=== PATIENT | female | born 1970 | race Caucasian/White ===

== ENCOUNTER → 2018-01-31 | Day surgery (SDC) | payer OTHER ==
[~2018-01-31] MED LIST: LIDOCAINE 1% 300 MG/30 ML SDV SC ONE
--- NOTE | 2018-01-31 15:40 | PDCTREPORT ---
Cardiothoracic Procedure Rpt Cardiothoracic Procedure Report: Procedure: Implantation of a loop recorder. Indications: CVA After obtaining informed consent the left subclavian area was sterilely prepped and draped. Small area was anesthetized with 2% xylocaine. Stab wound was made with a 10 blade in the anterior chest. Using the insertion tool and blunt dissection a loop recorder pocket was created. The loop recorder was injected under the skin. [place] were used to close the incision. Pressure dressing was applied. The patient is discharged home. Conclusion successful implantation of a loop recorder.
== END | disposition home or self-care (01) ==
LOC: FCATH 10:27
PROVIDERS: ATTEND Internal Medicine Interventional Cardiology
PROC: 0JH602Z Insertion of Monitoring Device into Chest Subcutaneous Tissue and Fascia, Open Approach (ICD-10-PCS; principal; 2018-01-31)
DX: I69.398 Other sequelae of cerebral infarction (principal); R53.1 Weakness; R00.2 Palpitations; R73.09 Other abnormal glucose
CPT/HCPCS: C1764

== ENCOUNTER → 2018-02-06 | Outpatient (CLI) | payer OTHER ==
[~2018-02-06] MED LIST changes: +IOPAMIDOL (ISOVUE 370) 100 ML BTL IV ONE; -LIDOCAINE 1% 300 MG/30 ML SDV SC ONE
== END ==
LOC: FIMAGING 10:07
PROVIDERS: ATTEND Psychiatry & Neurology Neurology
DX: Z86.73 Personal history of transient ischemic attack (TIA), and cerebral infarction without residual deficits (principal); J32.9 Chronic sinusitis, unspecified
CPT/HCPCS: Q9967

== ENCOUNTER → 2018-03-13 | Outpatient (CLI) | payer OTHER | LOC: FIMAGING 13:46 | PROVIDERS: ATTEND Obstetrics & Gynecology | DX: Z12.31 Encounter for screening mammogram for malignant neoplasm of breast (principal) ==

== ENCOUNTER 2018-05-10 19:43 | Emergency (ER) | payer OTHER ==
[2018-05-10 19:49] VITALS: BP 103/82
--- NOTE | 2018-05-10 19:56 | EDPHY ---
H & P Stated Complaint: L elbow swelling, Time Seen by Provider: 05/10/18 19:56 - Personal History LMP (Females 10-55): 1-7 Days Ago Current Tetanus Diphtheria and Acellular Pertussis (TDAP): Unsure - Medical/Surgical History Hx Asthma: No Hx Chronic Respiratory Disease: No Hx Diabetes: No Hx Cardiac Disease: No Hx Renal Disease: No Hx Cirrhosis: No Hx Alcoholism: No Hx HIV/AIDS: No Hx Splenectomy or Spleen Trauma: No Other PMH: Stroke Dec 2017 - Social History Smoking Status: Never smoked Constitutional: Initial Vital Signs Temperature (C) 36.9 C 05/10/18 19:47 Heart Rate 61 05/10/18 19:47 Respiratory Rate 17 05/10/18 19:47 Blood Pressure 103/82 H 05/10/18 19:47 O2 Sat (%) 97 05/10/18 19:47 O2 Delivery Mode Room Air Allergies/Adverse Reactions: No Known Allergies Allergy (Unverified 05/10/18 19:46) Home Medications: Medication Instructions Recorded Aspirin 05/10/18 Ibuprofen [Motrin] 800 mg PO Q8 #20 tab 05/10/18 Lipitor 05/10/18 Medical Decision Making ED Course/Re-evaluation: CHIEF COMPLAINT: Left elbow swelling HISTORY OF PRESENT ILLNESS: The patient is a 47 y/o female with a history of elbow tendinitis complaining of a sudden onset left elbow swelling, onset 3 hours ago. She was climbing around 3 hours ago without any signs of symptoms. However, since the swelling started, it has increased dramatically. She denies recent injury or overuse of her elbow. No fever, headache, body aches, lightheadedness, chest pain, heart palpitations, shortness of breath, cough, abdominal pain, urinary or bowel complaints, numbness, paresthesias. REVIEW OF SYSTEMS: A comprehensive 10 system review of systems is otherwise negative aside from elements mentioned in the history of present illness and medical decision making. PHYSICAL EXAM: HR, BP, O2 Sat, RR. Temp noted General Appearance: Alert, well hydrated, appropriate, and non-toxic appearing. Head: Atraumatic without scalp tenderness or obvious injury Eyes: Pupils equal, round, reactive to light and accommodation, EOMI, no trauma , no injection. Ears: Clear bilaterally, no perforation, normal landmarks Nose: Atraumatic, no rhinorrhea, clear. Throat: There is no erythema or exudates, no lesions, normal tonsils, mucus membranes moist. Neck: Supple, 2+ carotid upstroke, nontender, no lymphadenopathy. Respiratory: No retractions, no distress, no wheezes, and no accessory muscle use. Lungs are clear to auscultation bilaterally. Cardiovascular: Regular rate and rhythm, no murmurs, rubs, or gallops. Bilateral carotid, radial, dorsalis pedis, and posterior tibial pulses intact. Good capillary refill all extremities. Gastrointestinal: Abdomen is soft, nontender, non-distended, no masses, no rebound, no guarding, no peritoneal signs. Musculoskeletal: Olecranon bursitis without signs of infection. Pain with extension. Normal active ROM of all extremities, atraumatic. Neurological: Alert, appropriate, and interactive. The patient has normal DTRs and non-focal cranial nerves, motor, sensory, and cerebellar exam. Skin: No rashes, good turgor, no nodules on palpation. Past medical history: Stroke (December 2017), tendinitis Past surgical history: Denies Family history: Denies Social history: Lives in [place], , employed DIAGNOSTICS/PROCEDURES/CRITICAL CARE TIME: Not indicated. DIFFERENTIAL DIAGNOSIS: The differential diagnosis for the patient's elbow swelling included but was not limited to bursitis, fracture, ligamentous injury, contusion, muscular strain. MEDICAL DECISION MAKING: The patient is a 47 y/o female with a history of elbow tendinitis complaining of a sudden onset left elbow swelling, onset 3 hours ago. She denies recent trauma or over use. She was climbing prior to her onset of symptoms. On exam she has a left olecranon bursitis without signs of infection. She is able to move her elbow without difficulty, but does have mild pain with extension. Laboratory and imaging studies are not indicated. Patient will be placed in a sling. I have prescribed her Motrin and advised her to follow up with an orthopedic surgeon. Return precautions provided; patient is comfortable with this plan. d Departure - Departure Disposition: Home, Routine, Self-Care Clinical Impression: Olecranon bursitis Qualifiers: Laterality: left Qualified Code(s): M70.22 - Olecranon bursitis, left elbow Condition: Good Instructions: Elbow Bursitis (ED) Additional Instructions: 1. Take Motrin as prescribed for anti-inflammation. 2. Follow up with an orthopedic surgeon within one week. 3. Return to the emergency department for worsening pain, swelling, numbness, weakness or other concerns. 5. Wear the sling at all times until reevaluation, but okay to shower and sleep without splint. Referrals: Kimberley Suárez MD [Primary Care Provider] - As per Instructions Jason Mayes MD [Medical Doctor] - As per Instructions Prescriptions: Ibuprofen [Motrin] 800 mg PO Q8 #20 tab
[2018-05-10] MEDS ORDERED: IBUPROFEN 800 MG TAB PO ONE (20:01)
== END 2018-05-10 20:17 | disposition home or self-care (01) ==
DX: M70.22 Olecranon bursitis, left elbow (principal)

== ENCOUNTER 2018-05-11 17:40 | Emergency (ER) | payer OTHER ==
--- NOTE | 2018-05-11 18:08 | EDPHY ---
H & P Time Seen by Provider: 05/11/18 17:49 HPI/ROS: HPI Left elbow bruising. 47-year-old female by private vehicle with significant other. This patient was seen yesterday for left elbow swelling. She noticed this about 15 min after doing about 3 hr of climbing. She denies any history of trauma to the left elbow. She had no evidence of infection on evaluation yesterday. She was diagnosed with an elective or non bursitis. She was instructed on follow-up with Orthopedics. She presents back to the emergency department today stating that she now has a bruising, black and blue over the area of her left elbow swelling. She denies any increase in swelling. She has not had a fever. She denies any significant pain. There is no history of new trauma to the elbow joint. ROS: Constitutional: No fever, no chills. No weakness. Musculoskeletal: As above. Skin: No rashes. As above. Neurological: No focal weakness or altered sensation. Past medical history: Stroke December 2017. Unknown etiology. She currently takes a daily aspirin. Social history: Nonsmoker. Very physically active. No alcohol. Here with significant other. Physical Exam: General Appearance: Alert, no distress. This patient is responding to questions appropriately and in full sentences. This patient appears well- hydrated and well-nourished. Eyes: Pupils equal and round no pallor or injection. No lid edema, erythema or injection. Left elbow examination: She has a diffuse and faint ecchymosis primarily over the olecranon. There is some swelling involving the olecranon bursa and surrounding tissues. There is no significant tenderness on palpation of this area. She does not have any significant pain with axial loading of the left elbow, supination and pronation of her left hand or flexion and extension of the left elbow. The left upper extremity is neurovascularly intact. There is no associated warmth erythema on palpation and inspection of this area. Neurological: Motor sensory function is grossly intact. Cranial nerves are normal. Gait is normal. Skin: Warm and dry, no rashes. As above. Extremities are symmetrical except noted. All joints range without pain or impingement. Psychiatric: No agitation. No depression. Database: EKG: Imaging: Left elbow x-ray series: Negative for fracture, subluxation, dislocation. No effusion. Interpreted by me. Procedures: Emergency department course: Triage vital signs reviewed and are normal. She is afebrile. Patient's presentation is likely secondary to contusion associated with olecranon bursitis. Infectious etiology, gout unlikely. Left elbow x-ray series to be obtained. 7:00 p.m., the patient was re-evaluated, resting comfortably at this time. No significant changes regarding her left elbow. I feel that septic bursitis is unlikely. I discussed the results of her x-ray with her and her significant other. They do feel comfortable going home and I feel she is safe for discharge. I discussed orthopedic follow-up and continuing NSAID and management as outlined by Dr. Do. They endorse. Return to emergency department precautions were thoroughly reviewed. All of her questions were answered. The patient was discharged in good condition with her significant other. Differential Diagnosis: The differential diagnosis on this patient includes but is not limited to olecranon bursitis, left elbow contusion. Fracture, subluxation, dislocation of the left elbow, gouty arthritis, septic arthritis, septic bursitis unlikely. This represents a partial list of diagnoses considered. These considerations are based on history, physical exam, past history, reassessment and diagnostic testing. Smoking Status: Never smoked Constitutional: Initial Vital Signs Temperature (C) 36.7 C 05/11/18 17:42 Heart Rate 51 L 05/11/18 17:42 Respiratory Rate 16 05/11/18 17:42 Blood Pressure 103/69 05/11/18 17:42 O2 Sat (%) 98 05/11/18 17:42 O2 Delivery Mode Room Air Allergies/Adverse Reactions: No Known Allergies Allergy (Unverified 05/10/18 19:46) Home Medications: Medication Instructions Recorded Aspirin 05/10/18 Ibuprofen [Motrin] 800 mg PO Q8 #20 tab 05/10/18 Lipitor 05/10/18 Departure - Departure Disposition: Home, Routine, Self-Care Clinical Impression: Olecranon bursitis of left elbow, Contusion of left elbow Condition: Good Instructions: Elbow Bursitis (ED) Additional Instructions: Read and follow provided instructions. Follow-up with Orthopedics as instructed by Dr. Do. Continue ibuprofen/Motrin dosing and treatment plan as outlined by Dr. Do. Most important, return to the emergency department for worsening swelling, redness and warmth associated with your left elbow, fever, worsening pain or other serious concerns. Referrals: Kimberley Suárez MD [Primary Care Provider] - As per Instructions
[2018-05-11 19:19] VITALS: BP 97/67
== END 2018-05-11 19:18 | disposition home or self-care (01) ==
DX: M70.22 Olecranon bursitis, left elbow (principal); S50.02XA Contusion of left elbow, initial encounter; Y99.9 Unspecified external cause status

== ENCOUNTER → 2018-05-30 | Day surgery (SDC) | payer OTHER ==
[~2018-05-30] MED LIST changes: +BENZOCAINE UNIT DOSE SPRAY HURRICAINE MM ONE; -IOPAMIDOL (ISOVUE 370) 100 ML BTL IV ONE; +LIDOCAINE 2% 2 ML INJ ONE; +MIDAZOLAM 2 MG/2 ML VIAL IVP ONE; +NS 500 ML IV ONE; +PROPOFOL 200 MG/20 ML VIAL ONE; +fentaNYL 100 MCG/2 ML INJ IVP ONE
--- NOTE | 2018-05-30 07:54 | PDHPUP ---
History & Physical Update H&P update statement: This history and physical update is based on an assessment of the patient which was completed after admission or registration (within 24 hours), but prior to the surgery/procedure. H&P update: H&P reviewed & patient examined, no change in patient's condition since H&P completed
--- NOTE | 2018-05-30 07:56 | PDANEPAE ---
ANE Past Medical History - Cardiovascular History Hx Hypertension: No Hx Arrhythmias: No Hx Chest Pain: No - Pulmonary History Hx Oxygen in Use at Home: No - Endocrine History Hx Diabetes: No - Renal History Hx Renal Disorders: No - Liver History Hx Hepatic Disorders: No - Neurological & Psychiatric Hx Hx Neurological and Psychiatric Disorders: Yes - GI History Hx Gastrointestinal Disorders: No ANE Review of Systems Review of Systems: ANE Patient History - Allergies Allergies/Adverse Reactions: No Known Allergies Allergy (Unverified 05/10/18 19:46) - Home Medications Home Medications: Aspirin 05/10/18 [Last Taken Unknown] Lipitor 05/10/18 [Last Taken Unknown] - Smoking Hx Smoking Status: Never smoked ANE Physical Exam - Airway Neck exam: FROM Mallampati Score: Class 1 Mouth exam: normal dental/mouth exam - Pulmonary Pulmonary: no respiratory distress, no rales or rhonchi, clear to auscultation - Cardiovascular Cardiovascular: regular rate and rhythym, no murmur, rub, or gallop - ASA Status ASA Status: II ANE Anesthesia Plan Anesthesia Plan: GA with mask Total IV Anesthesia: Yes
--- NOTE | 2018-05-30 07:56 | POSTANESTH ---
Post Anesthetic Evaluation Cardiovascular Status: Normal, Stable Respiratory Status: Normal, Stable Level of Consciousness/Mental Status: Can Participate in Eval Pain Control: Adequate, Prn Tx Ordered Nausea/Vomiting Control: Adequate, Prn Tx Ordered Complications Possibly Related to Anesthesia: None Noted
--- NOTE | 2018-05-30 13:37 | ECHO ---
[email or web address] [address] [address] Main: [phone] Echocardiography Examination Transesophageal Name: NAVEED KINSEY MR#: [id number] Study Date: 05/30/2018 Study Time: 07:23 AM Date of : 1970 Age: 47 year(s) Height: ( ) Weight: ( ) BSA: Gender: Female Examination: COREY Contrast: Image Quality: Adequate Rhythm: Heart Rate: BP: 103 mmHg/76 mmHg Indication: Evaluate PFO Procedure Staff Referring Physician: Crown Attacher: Melani Peña CATHERINE Reading Physician: Jennifer Marie MD Requesting Provider: Ordering Physician: Jennifer Marie MD Indication: Evaluate PFO Acute complication: None Measurements AV/MV Label Value Normal Value AV PGmax 4 mmHg AV Vmax 0.99 m/s Conclusions 1. Normal LV systolic function. Normal wall motion 2. RV is normal in size and systolic function 3. The interatrial septum is mobile. There is a small PFO documented with bubble study 4. Trace to mild MR 5. Trace TR Findings Left Ventricle: Left ventricle is normal in size. Normal global systolic left ventricular function. Right Ventricle: Normal size right ventricle. Right ventricular systolic function is normal. Patient: NAVEED KINSEY Study Date: 05/30/2018 Page 1 of 2 07:23 AM Left Atrium: Bubble study consistent with small PFO. Left Atrium Appendage: Normal PW-Doppler flow pattern. Good color flow doppler in the left atrial appendage. No thrombus is identified. IAS: An agitated saline study was performed and was positive for intracardiac shunting. Hypermobile interatrial septum. Mitral Valve: There is elongation of the anterior mitral valve leaflet with focal A2 prolapse. Trivial to mild mitral regurgitation. Aortic Valve: Aortic leaflets are structurally normal. No significant aortic valve regurgitation. Tricuspid Valve: Tricuspid valve leaflets are structurally normal. Trivial tricuspid regurgitation. Pulmonic Valve: Pulmonic leaflets are structurally normal. No significant pulmonic valve regurgitation is evident. Aorta: Descending aorta is normal in size. Exam Details Procedure Ordered: COREY Procedure Status: Routine study Image Quality: Adequate Consent: Risks, alternatives of procedure explained to patient, informed consent obtained Probe Insertion: Attending radiology equipment servicer Facility Location: Cardiac Echo 1 (No Signature Object) Patient: NAVEED KINSEY Study Date: 05/30/2018 Page 2 of 2 07:23 AM [id number]
== END | disposition home or self-care (01) ==
LOC: FCATH 06:28
PROVIDERS: ATTEND Internal Medicine Cardiovascular Disease
PROC: B245ZZ4 Ultrasonography of Left Heart, Transesophageal (ICD-10-PCS; principal; 2018-05-30)
DX: Q21.1 Atrial septal defect (principal); Z86.73 Personal history of transient ischemic attack (TIA), and cerebral infarction without residual deficits
CPT/HCPCS: J2704

== ENCOUNTER 2018-06-11 06:28 | Observation (INO) | payer OTHER ==
[2018-06-11] MEDS ORDERED: LIDOCAINE 1% 300 MG/30 ML SDV ONE (06:36)
[2018-06-11] MEDS ORDERED: IOPAMIDOL (ISOVUE-300) 100 ML BTL ONE ×2 (06:37)
[2018-06-11] MEDS ORDERED: ceFAZolin 2 GM/DEXTROSE 100 ML IV ONE (07:00)
[2018-06-11] MEDS ORDERED: MIDAZOLAM 2 MG/2 ML VIAL ONE (07:07)
--- NOTE | 2018-06-11 07:08 | PDPROPOC ---
Sedation Plan of Care Sedation Plan of Care: mental status noted, patient educated of risks, benefits , alternatives, patient can tolerate sedation ASA Classification: ASA 2 Planned drugs: other Mallampati Score: Class 2 Mallampati Reference Image: Patient passed 3-3-2 rule?: Yes
[2018-06-11] MEDS ORDERED: MIDAZOLAM 2 MG/2 ML VIAL IVP ONE (07:09)
--- NOTE | 2018-06-11 07:09 | PDANEPAE ---
ANE History of Present Illness 47 yo for pfo closure ANE Past Medical History - Cardiovascular History Hx Hypertension: No Hx Arrhythmias: No Hx Chest Pain: No Hx Coronary Artery / Peripheral Vascular Disease: No Hx CHF / Valvular Disease: No Hx Palpitations: No - Pulmonary History Hx COPD: No Hx Asthma/Reactive Airway Disease: No Hx Recent Upper Respiratory Infection: No Hx Oxygen in Use at Home: No Hx Sleep Apnea: No - Endocrine History Hx Diabetes: No - Renal History Hx Renal Disorders: No - Liver History Hx Hepatic Disorders: No - Neurological & Psychiatric Hx Hx Neurological and Psychiatric Disorders: Yes - GI History Hx Gastrointestinal Disorders: No ANE Review of Systems Review of Systems: - Exercise capacity METS (RN): 5 METS ANE Patient History - Allergies Allergies/Adverse Reactions: No Known Allergies Allergy (Verified 06/04/18 10:10) - Home Medications Home medications: home medication list seen and reviewed Home Medications: Aspirin [Aspirin 325 mg (*)] 325 mg PO DAILY 05/10/18 [Last Taken Unknown] Atorvastatin Calcium [Lipitor 40 mg (*)] 80 mg PO DAILY 05/10/18 [Last Taken Unknown] - NPO status NPO Status: no food or drink >8 hours - Anes Hx Anes Hx: no prior problems - Smoking Hx Smoking Status: Never smoked ANE Labs/Vital Signs - Vital Signs Height: 5 ft 4.17 in Weight: 54.4 kg ANE Physical Exam - Airway Neck exam: FROM Mallampati Score: Class 2 - Pulmonary Pulmonary: no respiratory distress - Cardiovascular Cardiovascular: regular rate and rhythym - ASA Status ASA Status: II ANE Anesthesia Plan Anesthesia Plan: general endotracheal anesthesia
[2018-06-11] MEDS ORDERED: fentaNYL 100 MCG/2 ML INJ ONE (07:17)
[2018-06-11] MEDS ORDERED: PROPOFOL/EMULSION 500 MG/50 ML BOTTLE IV ONE (07:17)
[2018-06-11] MEDS ORDERED: REMIFENTANIL HCL 1 MG VIAL ONE (07:17)
[2018-06-11] MEDS ORDERED: DEXAMETHASONE 4 MG/ML VIAL ONE (07:20)
[2018-06-11] MEDS ORDERED: ROCURONIUM 50 MG/5 ML VIAL ONE (07:20)
[2018-06-11] MEDS ORDERED: ONDANSETRON 4 MG/2 ML VIAL ONE (08:22)
[2018-06-11] MEDS ORDERED: SUGAMMADEX SODIUM 200 MG/2 ML VIAL IVP ONE (08:22)
[2018-06-11] MEDS ORDERED: OXYCODONE/APAP 5/325 TAB PO PRN (08:37)
[2018-06-11] MEDS ORDERED: ATROPINE SULFATE 1 MG/10 ML SYR IVP PRN (08:37)
[2018-06-11] MEDS ORDERED: HYDROCODONE/APAP 5/325 TAB PO PRN (08:37)
[2018-06-11] MEDS ORDERED: NITROGLYCERIN 0.4 MG BTL SL PRN (08:37)
[2018-06-11] MEDS ORDERED: LORazepam 2 MG/ML INJ IVP PRN (08:37)
[2018-06-11] MEDS ORDERED: ONDANSETRON 4 MG/2 ML VIAL IVP PRN (08:37)
[2018-06-11] MEDS ORDERED: TEMAZEPAM 15 MG CAP PO PRN (08:37)
--- NOTE | 2018-06-11 12:17 | CPIP ---
[f rep st] INVASIVE CARDIAC PROCEDURE DATE OF PROCEDURE: 06/11/2018 INDICATION FOR PROCEDURE: Cryptogenic stroke. CO-SURGEONS: Dr. Jennifer Marie, Dr. Cosme Gutierrez PROCEDURE: 1. 8-Ethiopian sheath in the right common vein upsized to a 9-Ethiopian Ousna PFO sheath. 2. Crossing of PFO with multipurpose catheter and wire. 3. Placement of Osuna Amplatzer device 25 mm. HISTORY: Briefly, this is a 47-year-old female with history of CVA. The patient had been wearing a LINQ with no evidence of any atrial fibrillation, but the patient did have a known PFO. Given these findings, patient who had been evaluated, patient was consented for a PFO closure. DESCRIPTION OF PROCEDURE: After informed consent, the patient was brought to [facility] where the patient was electively intubated. COREY performed by Dr. Rodriguez. The patient was administe red a total of 11,000 heparin IV. After 8-Ethiopian sheath was placed in right common vein, the PFO was crossed with a multipurpose catheter and a 0.035 wire. Multiple catheters were placed in the left a trium. A Toray wire was placed into the left atrium. Sheath was removed. The 8-Ethiopian sheath was r emoved. A 9-Ethiopian Osuna PFO sheath was then advanced into the left atrium. Wire and dilator were removed. A 25 mm PFO device was then advanced and deployed. The 25 mm device was deployed successfu lly. Left atrial disk was captured on the left atrial size and the right atrial this was captured in the right atrial side. This was verified under COREY guidance under multiple images. After push-pul l test displayed the device was not moving and was secured in place, the device was deployed successf ully. The sheath was then pulled back. The right groin sutures were place. The patient tolerated t he procedure well with no complications. IMPRESSIONS: Placement of Osuna Amplatzer 25 mm device by the transfemoral route. PLAN: The patient will be admitted to inpatient, discharge within 24 hours if clinically stable. Wi ll remain on aspirin, Plavix for at least 6 months. /[id number]/MODL
--- NOTE | 2018-06-11 14:36 | ECHO ---
[email or web address] [place] [id number] Main: [phone] Echocardiography Examination Transesophageal Name: NAVEED KINSEY MR#: [id number] Study Date: 06/11/2018 Study Time: 07:43 AM Date of : 1970 Age: 47 year(s) Height: ( ) Weight: ( ) BSA: Gender: Female Examination: COREY Contrast: Image Quality: Adequate Rhythm: Heart Rate: BP: / Indication: PFO Closure Procedure Staff Referring Physician: Sheet Heater: Melani Peña RDCS Reading Physician: Jennifer Marie MD Requesting Provider: Ordering Physician: Eber Leonardo MD Indication: PFO Closure Acute complication: None Conclusions 1. Normal LV size and systolic function. Normal wall motion. 2. The right ventricle is normal in size and systolic function. 3. The patient has a known PFO. Under fluoroscopic and COREY guidance a septal occluded device was placed across the PFO. Post deployment there was no evidence of residual color flow across the device her interatrial septum. The device appeared well seated . 4. Mild mitral regurgitation. The mitral valve is structurally normal. 5. Aortic valve is structurally normal. 6. No pericardial effusion. Findings Left Ventricle: Left ventricle is normal in size. Normal global systolic left ventricular function. There are no regional wall motion abnormalities. Right Ventricle: Normal size right ventricle. Right ventricular systolic function is normal. Left Atrium: There was successful deployment of a septal occluder device. Post deployment there was no evidence of residual colorflow across the device or interatrial septum. Left Atrium Appendage: No thrombus is identified. Patient: NAVEED KINSEY Study Date: 06/11/2018 Page 1 of 2 07:43 AM Mitral Valve: Mitral valve appears structurally normal. Mild mitral regurgitation. Aortic Valve: Aortic leaflets are structurally normal. Tricuspid Valve: Tricuspid valve leaflets are normal in appearance. Pulmonic Valve: Pulmonic leaflets are normal in appearance. Pericardium: No pericardial effusion. Exam Details Procedure Ordered: COREY Procedure Status: Routine study Image Quality: Adequate Consent: Risks, alternatives of procedure explained to patient, informed consent obtained Probe Insertion: Attending unloader Facility Location: General Supervisor (No Signature Object) Patient: NAVEED KINSEY Study Date: 06/11/2018 Page 2 of 2 07:43 AM [id number]
[2018-06-12 04:46] LABS: PLATELET COUNT 237 10^3/uL (150-400)
--- NOTE | 2018-06-12 06:26 | PDCARPN ---
Cardiology Progress Note Chief Complaint: PFO/hx of CVA Assessment/Plan: Assessment: s/p PFO closure Plan: 06/12/18 06:24 doing well check limited echo d/c home today if echo NL plavix/ASA daily Subjective: doing well Reviewed/Discussed With: multidisciplinary team Time Spent with Patient: greater than 25 minutes Time Spent with Patient: Greater than 25 minutes spent on this patients care, greater than 50% of time spent counseling, educating, and coordinating care regarding the above mentioned plan. Objective: Vital Signs (8 Hrs) Temp Pulse Resp BP Pulse Ox 06/12/18 04:00 36.8 C 50 L 16 90/57 L 93 06/11/18 23:12 37.1 C 67 18 83/44 L 94 Intake/Output (24 Hrs) 06/11/18 06/12/18 06/13/18 05:59 05:59 05:59 Intake Total 1840 Balance 1840 Intake: Oral (ml) 840 IV Intake (ml) 1000 Other: Weight 54.4 kg Number of Voids Toilet 1 Result Diagrams: 06/12/18 03:42 06/12/18 03:42 - Physical Exam Constitutional: no apparent distress Eyes: PERRL Ears, Nose, Mouth, Throat: moist mucous membranes Cardiovascular: regular rate and rhythm Peripheral Pulses: 1+: femoral (R), femoral (L) Respiratory: clear to auscultate bilat Gastrointestinal: normoactive bowel sounds Genitourinary: no suprapubic tenderness Skin: no rashes Musculoskeletal: no muscular tenderness Neurologic: AAOx3 Psychiatric: cooperative ICD10 Worksheet Patient Problems: Problems Problem Status Onset PFO (patent foramen ovale) Acute - ICD10 Problem Qualifiers (1) PFO (patent foramen ovale)
--- NOTE | 2018-06-12 06:41 | GDS ---
[f rep st] DISCHARGE SUMMARY DISCHARGE DIAGNOSIS: PFO closure. HOSPITAL COURSE: Briefly, this is a 47-year-old female with history of CVA, PFO, as well as no evide nce of atrial fibrillation, wearing a LINQ monitor. The patient underwent a successful PFO closure w ith a 25 mm Amplatz occluding device. Post procedure, patient has done well with no arrhythmias note d. Laboratory values are within the patient's baseline. The patient will have a limited echo this m orning. If the patient's echo shows no gross abnormalities, the patient will be discharged home this morning with aspirin and Plavix and will follow up in the office next week. /[id number]/MODL
[2018-06-12 07:55] VITALS: BP 100/68
[2018-06-12] MEDS ORDERED: CLOPIDOGREL BISULFATE 75 MG TAB PO SCH (09:00)
[2018-06-12] MEDS ORDERED: ATORVASTATIN CALCIUM 40 MG TAB PO SCH (09:00)
[2018-06-12] MEDS ORDERED: ASPIRIN 81 MG CHEWABLE TAB PO SCH (09:00)
--- NOTE | 2018-06-12 09:37 | PDCARPN ---
Cardiology Progress Note Chief Complaint: PFO Assessment/Plan: Assessment: s/p PFO closure. She had a CVA prior and was hospitalized at [facility] ECHO confirmed PFO Today s/p PFO Closure she is feeling well, and euphoric to have this now done with no complications. Will remove sutures from groin site. Plan: Discharge later this morning. 06/12/18 09:34 06/12/18 11:18 Suture removed with no complications. Site intact with no bleeding. Subjective: I feel good. So glad to have "this" done! Reviewed/Discussed With: multidisciplinary team, other (Jose Cruz Leonardo MD) Time Spent with Patient: greater than 25 minutes Time Spent with Patient: Greater than 25 minutes spent on this patients care, greater than 50% of time spent counseling, educating, and coordinating care regarding the above mentioned plan. Objective: Vital Signs (8 Hrs) Temp Pulse Resp BP Pulse Ox 06/12/18 07:52 36.6 C 47 L 14 100/68 97 06/12/18 04:00 36.8 C 50 L 16 90/57 L 93 Intake/Output (24 Hrs) 06/11/18 06/12/18 06/13/18 05:59 05:59 05:59 Intake Total 1840 Balance 1840 Intake: Oral (ml) 840 IV Intake (ml) 1000 Other: Weight 54.4 kg Number of Voids Toilet 1 Result Diagrams: 06/12/18 03:42 06/12/18 03:42 - Physical Exam Constitutional: no apparent distress Cardiovascular: regular rate and rhythm Respiratory: clear to auscultate bilat Skin: warm Neurologic: AAOx3 Psychiatric: cooperative, interactive ICD10 Worksheet Patient Problems: Problems Problem Status Onset PFO (patent foramen ovale) Acute
--- NOTE | 2018-06-12 10:29 | ECHO ---
[email or web address] [address] [address] Main: [phone] Echocardiography Examination Transthoracic Name: NAVEED KINSEY MR#: [id number] Study Date: 06/12/2018 Study Time: 08:26 AM Date of : 1970 Age: 47 year(s) Height: 162.6 cm (64 in.) Weight: 53.98 kg (119 lb.) BSA: 1.57 m2 Gender: Female Examination: Limited Echo Contrast: Image Quality: Adequate Rhythm: Heart Rate: BP: 100 mmHg/63 mmHg Indication: s/p PFO Closure Procedure Staff Referring Physician: Plate Conditioner: Melani Peña [facility] Reading Physician: Eber Leonardo MD Requesting Provider: Ordering Physician: Eber Leonardo MD Indication: s/p PFO Closure Conclusions Left Ventricle: Normal global systolic left ventricular function. IAS: There is a septal occluder device in place. The device appears well seated. There is no evidence of residual color flow seen across the septum or device. Pericardium: No pericardial effusion. Findings Left Ventricle: Left ventricle is normal in size. Normal global systolic left ventricular function. There are no regional wall motion abnormalities. IAS: There is a septal occluder device in place. The device appears well seated. There is no evidence of residual color flow seen across the septum or device. Mitral Valve: Mitral valve appears structurally normal. Mild mitral regurgitation. Aortic Valve: Patient: NAVEED KINSEY Study Date: 06/12/2018 Page 1 of 2 08:26 AM Aortic leaflets are normal in appearance. No significant aortic valve regurgitation. Tricuspid Valve: Tricuspid valve leaflets are structurally normal. Trivial tricuspid regurgitation. Pericardium: No pericardial effusion. Exam Details Procedure Ordered: Limited Echo Procedure Components: Limited 2D imaging Procedure Status: Routine study Image Quality: Adequate Facility Location: Bedside (No Signature Object) Patient: NAVEED KINSEY Study Date: 06/12/2018 Page 2 of 2 08:26 AM [id number]
--- NOTE | 2018-06-12 11:21 | ASDISCHSUM ---
Discharge Information Plan Status:Home with No Needs Medically Cleared to Leave:06/12/2018 Discharge Date:06/12/2018 CM D/C Disposition:Home, Routine, Self-Care ADT D/C Disposition:Home, Routine, Self-Care Projected Discharge Date:06/12/2018 Transportation at D/C: Discharge Delay Reason: Follow-Up Date:06/12/2018 Discharge Slot: Final Diagnosis: Placement Information Patient Contact Information Contact Name:MURALI Relationship: Address:[address] City:[place] Alternate Phone: [facility]/Zip Code:[place] [address] Email: Financial Information Financial Class:Javed Fatima Primary Plan Desc:JAVED HANCOCK O [facility] LOCAL Primary Plan Number:[id number] Secondary Plan Desc: Secondary Plan Number: Assessment Information LACE LACE Length of stay for Answers: 1 day current admission Acuity / Level of Answers: No Care: Did the patient have an inpatient admission? Comorbidities - select Answers: Any tumor (including all that apply lymphoma or leukemia) # of Emergency department Answers: 1-2 visits in the last 6 months Score: 4 Date Signed: 06/12/2018 11:20 AM Electronically Signed By:Kimberly Lopez RN Intervention Information
--- NOTE | 2018-06-13 10:20 | CPEKG ---
Test Reason : OPEN Blood Pressure : / mmHG Vent. Rate : 060 BPM Atrial Rate : 057 BPM P-R Int : 199 ms QRS Dur : 081 ms QT Int : 446 ms P-R-T Axes : 066 078 055 degrees QTc Int : 446 ms Sinus rhythm Confirmed by Wyatt Brothers ([id number]) on 06/13/2018 10:20:34 AM Referred By: Eber Leonardo Confirmed By:Wyatt Brothers
== END 2018-06-12 12:36 | disposition home or self-care (01) ==
LOC: FCATH 06:28 → F2W 08:37 → INTOOBSV 08:37 → F2W 10:49
PROVIDERS: ADMIT Internal Medicine Cardiovascular Disease; ATTEND Internal Medicine Cardiovascular Disease
PROC: B245ZZ4 Ultrasonography of Left Heart, Transesophageal (ICD-10-PCS; principal; 2018-06-11)
PROC: 02U53JZ Supplement Atrial Septum with Synthetic Substitute, Percutaneous Approach (ICD-10-PCS; principal; 2018-06-11)
DX: Q21.1 Atrial septal defect (principal); Z86.73 Personal history of transient ischemic attack (TIA), and cerebral infarction without residual deficits; Z95.811 Presence of heart assist device
CPT/HCPCS: 93005; 93308; 93355; 93580; G0378; C1769; C1817; J0690; J1100; J1644; J2250; J2405; J2704; J3010; Q9967